=== PATIENT | female | born 1955 | race Caucasian/White ===

== ENCOUNTER 2020-07-08 13:37 | Outpatient (CLI) | payer BC, SELFPAY ==
--- NOTE | ~2020-07-08 | MM_ITS ---
EXAMINATION: MM scrn patience implant BI w indy HISTORY: Screening mammogram TECHNIQUE: Craniocaudal and mediolateral oblique 3-D tomosynthesis images with implant displacement a nd synthetic 2-D images were generated. Craniocaudal and mediolateral oblique views of the breasts wi thout implant displacement were obtained using full field digital mammography. CAD analysis was submi tted and interpreted. COMPARISON: Comparison to multiple prior studies sequentially, with oldest reviewed study dated 07/2011. BREAST PARENCHYMAL COMPOSITION: The breasts are heterogeneously dense, which may obscure small masses . FINDINGS: There is no evidence of suspicious mass, calcification, or architectural distortion to sugg est malignancy in either breast. There has been no suspicious interval change. IMPRESSION: 1. No mammographic evidence of malignancy. 2. Recommend routine screening mammography in one year. BI-RADS Category 1: Negative Reviewed, dictated and finalized at location A.
== END 2020-07-08 13:38 | disposition home or self-care (01) ==
LOC: ANHIMG 13:42
PROVIDERS: PCP Family Medicine; Visit Provider Obstetrics & Gynecology
DX: Z12.31 Encounter for screening mammogram for malignant neoplasm of breast (principal)
CPT/HCPCS: 77063; 77067

== ENCOUNTER 2022-07-14 16:07 | Outpatient (CLI) | payer MEDICARE, OTHER, SELFPAY ==
--- NOTE | ~2022-07-14 | MM_ITS ---
EXAMINATION: MM scrn patience implant BI w indy HISTORY: Screening mammogram TECHNIQUE: Craniocaudal and mediolateral oblique 3-D tomosynthesis images with implant displacement a nd synthetic 2-D images were generated. Craniocaudal and mediolateral oblique views of the breasts wi thout implant displacement were obtained using full field digital mammography. CAD analysis was submi tted and interpreted. COMPARISON: 07/08/2020, 03/02/2018, 07/23/2014, 07/14/2014 BREAST PARENCHYMAL COMPOSITION: The breasts are heterogeneously dense, which may obscure small masses . FINDINGS: There is no evidence of suspicious mass, calcification, or architectural distortion to sugg est malignancy in either breast. There has been no suspicious interval change. IMPRESSION: 1. No mammographic evidence of malignancy. 2. Recommend routine screening mammography in one year. BI-RADS Category 1: Negative Reviewed, dictated and finalized at location A.
== END 2022-07-14 16:08 | disposition home or self-care (01) ==
PROVIDERS: PCP Family Medicine; Visit Provider Obstetrics & Gynecology
DX: Z12.31 Encounter for screening mammogram for malignant neoplasm of breast (principal)
CPT/HCPCS: 77063; 77067

== ENCOUNTER 2023-02-14 11:40 | Outpatient (CLI) | payer MEDICARE, OTHER, SELFPAY ==
--- NOTE | ~2023-02-14 | MMUS_ITS ---
EXAMINATION: MM diag patience implant BI w indy, US breast BI complete HISTORY: Left breast lump TECHNIQUE: Bilateral full field and spot left displaced implant ML, MLO and CC 3-D tomosynthesis imag es were performed and synthetic 2-D images were generated. CAD analysis was submitted and interpreted . High resolution complete bilateral breast ultrasound examination including all quadrants and subare olar area of each breast was performed. COMPARISON: July 14, 2022, July 08, 2020 bilateral implant screening mammogram examinations BREAST PARENCHYMAL COMPOSITION: The breasts are extremely dense, which lowers the sensitivity of mamm ography. FINDINGS: MAMMOGRAPHIC FINDINGS: Status post bilateral augmentation mammoplasty. No suspicious mass or architectural distortion, malignant calcification, skin thickening or retractio n of either breast is detected. The extremely dense stroma may obscure masses; for this reason, bilateral complete breast ultrasound examination was performed. ULTRASOUND: There are multiple bilateral circumscribed oval sonolucent and hypoechoic lesions, without internal v ascularity or suspicious shadowing. The largest on the right is situated at 11:00 5 cm from the nippl e, simple cysts measuring 5 x 4 mm. The largest on the left is a cyst measuring approximately 2.7 x 5 mm, at 9:00 4 cm from the nipple. No suspicious mass or shadowing of either breast is detected. IMPRESSION: 1. Benign findings; no mammographic or sonographic evidence of malignancy 2. Routine annual mammographic screening is recommended, with ultrasound supplementation as clinicall y appropriate BI-RADS Category 2: Benign finding(s). Reviewed, dictated and finalized at location A. BREASTER IMPRESSION: 1. Benign findings; no mammographic or sonographic evidence of malignancy 2. Routine annual mammographic screening is recommended, with ultrasound supple mentation as clinically appropriate BI-RADS Category 2: Benign finding(s).
== END 2023-02-14 11:41 | disposition home or self-care (01) ==
PROVIDERS: PCP Family Medicine; Visit Provider Family Medicine
DX: N63.22 Unspecified lump in the left breast, upper inner quadrant (principal)
CPT/HCPCS: 76641; 77062; 77066; G0279

== ENCOUNTER 2024-07-24 09:53 | Outpatient (CLI) | payer MEDICARE, OTHER, SELFPAY ==
--- NOTE | ~2024-07-24 | MM_ITS ---
EXAMINATION: MM scrn patience implant BI w indy HISTORY: Screening mammogram TECHNIQUE: Craniocaudal and mediolateral oblique 3-D tomosynthesis images with implant displacement a nd synthetic 2-D images were generated. Craniocaudal and mediolateral oblique views of the breasts wi thout implant displacement were obtained using full field digital mammography. CAD analysis was submi tted and interpreted. COMPARISON: Comparison to multiple prior studies sequentially, with oldest reviewed study dated 09/2017. BREAST PARENCHYMAL COMPOSITION: Dense: The breasts are heterogeneously dense, which may obscure small masses FINDINGS: There is no evidence of suspicious mass, calcification, or architectural distortion to sugg est malignancy in either breast. There has been no suspicious interval change. IMPRESSION: 1. No mammographic evidence of malignancy. 2. Recommend routine screening mammography in one year. BI-RADS Category 1: Negative Reviewed, dictated and finalized at location A.
--- OUTSIDE RECORDS SUMMARY | 2024-07-24 10:58 | XMS_ITS | Clinical Summary ---
Author Organization [facility] Address [address] [place] [id number] Care Team Providers Care Stone Grader Name Role Phone Geraldo Petersen MD Primary Care Provider [phone] Social History Tobacco Use Types Packs/Day Years Used Date Smoking Tobacco: Never Assessed Comments Unknown Sex and Gender Information Value Date Recorded Sex Assigned at Not on file Legal Sex Female 7:42 PM CDT Gender Identity Not on file Sexual Orientation Not on file Plan of Treatment Health Maintenance Due Date Last Done Comments Colorectal Cancer Screening Colonoscopy (10 Years) 1957 Hepatitis C 1975 DTaP, Tdap and Td Vaccines ( 1 - Tdap) 1976 Mammogram Screening 1997 Pneumococcal Vaccine: 50+ Ye ars (1 of 1 - PCV) 2007 Zoster Vaccines (1 of 2) 2007 Dexa Scan (General) 2022 COVID-19 Vaccine (1 - 2023-2 5 season) 2023 RSV Immunization or 60+ Years (1 - 1-dose 75+ series) 2032 Meningococcal B Vaccine Aged Out No l onger eligible based on patient's age to complete this topic Meningococcal Vaccine Aged Out No gurdeep nikia eligible based on patient's age to complete this topic RSV Immunizations Under 20 Months Aged Out No longer eligible based on patient's age to complete this topic Care Teams Stone Grader Relationship Specialty Start Date End Date Geraldo Petersen MD [address] [place] [address] JACKSON [address] [place] [id number] PCP - General 07/12/14
--- OUTSIDE RECORDS SUMMARY | 2024-07-24 10:58 | XMS_ITS | Encounter Summary ---
Author Organization [facility] Address [address] [place] [address] Care Team Providers Care City Dispatch Supervisor Name Role Phone Unavailable Primary Care Provider Unavailabl e Encounter Details Date Type Department Care Team (Late st Contact Info) Description 09/07/2022 Lab Requisition [facility] - DermPath Lab [address] [place] [id number] Dav Witt MD [address] [place] [address] Social History Tobacco Use Types Packs/Day Years Used Date Smoking Tobacco: Never Assessed Comments Unknown Sex and Gender Information Value Date Recorded Sex Assigned at Not on file Legal Sex Female 4:46 PM CDT Gender Identity Not on file Sexual Orientation Not on file documented as of this encounter Plan of Treatment Not on file documented as of this encounter Procedures Procedure Name Priority Date/Time Associated Diagnosis Comments DERMATOPATHOLOGY Routine 09/07/2022 3:33 AM CDT documented in this encounter Results * DERMATOPATHOLOGY (09/07/2022 3:33 AM CDT) Case Report Dermatopathology Report Case: [id number] Authorizing Provider: Dav Witt MD Collected: 09/07/2022 03:33 AM Ordering Location: [facility] DermPath Lab Received: 09/07/2022 05:01 PM Pathologist: Osiris Everett MD Specimen: Skin, left lower eyelid 12:46 PM CDT DERMATOPATHOLOGY LABORATORY Final Diagnosis Specimen A. 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 The specimen consists of a shave biopsy measuring 1x2x1 mm. Jar 0. 3 12:46 PM [facility] DERMATOPATHOLOGY LABORATORY Microscopic Description Specimen A. SKIN, left lower eyelid: Within the dermis, there is a space lined by one to several layers of typical epithelial cells that resemble the lining of the normal sweat duct. Additional deeper sections were obtained and reviewed. 3 12:46 PM [facility] DERMATOPATHOLOGY LABORATORY Disclaimer An external and internal positive and negative controls are appropriate for the histochemical, immunohistochemical and immunofluorescence stain(s) in this case (if any), except where stated explicitly. The performance characteristics of the stain(s) cited in this report were developed and its performance characteristic determined by the Dermatopathology Laboratory at [facility], directed by Dr. Becky Gonzalez. These tests need not be, and therefore are not, approved by the [place] Food and Drug Administration. The tests are used for clinical purposes. Billing Codes Specimen Charges Stain Charges 92654 1 3 12:46 PM CDT DERMATOPATHOLOGY LABORATORY Embedded Images 3 12:46 PM T DERMATOPATHOLOGY LABORATORY Pathology/Cytolo gy TISSUE SPECIMEN FROM SKIN / Unknown 09/07/2022 3:33 AM CDT 09/07/2022 5:01 PM CDT us Dav Witt MD LAB - PATHOLOGY/CYTOLOGY ORDERAB LES Final Result DERMATOPATHOLOGY LABORATORY [facility] - Department of Dermatology [address] [place] [address], [facility] [phone] documented in this encounter Visit Diagnoses Not on filedocumented in this encounter
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
--- OUTSIDE RECORDS SUMMARY | 2024-07-24 10:58 | XMS_ITS | Clinical Summary ---
Author Organization [facility] Address [address] [place] [address] Care Team Providers Care Neurosurgical Physician Assistant Name Role Phone Unavailable Primary Care Provider Unavailabl e Source Comments [facility],non-owned Affiliates and Associated Physician Practices is amultiple site organization consisting of ambulatory clinics and hospital sitesin [place], [place], [place] and [place]. This disclosure is being madepursuant to the Care Everywhere program and may not contain all information available regarding this patient. Last updated 17.[facility] Social History Tobacco Use Types Packs/Day Years Used Date Smoking Tobacco: Never Assessed Comments Unknown Sex and Gender Information Value Date Recorded Sex Assigned at Not on file Legal Sex Female 4:46 PM CDT Gender Identity Not on file Sexual Orientation Not on file Plan of Treatment Health Maintenance Due Date Last Done Comments BONE DENSITY TESTING 1957 COLOGUARD (AGES 45-75) - COL ON CA SCREENING 1957 COLON MONITORING 1957 COLONOSCOPY - COLON CA SCREENING 1957 CT COLONOGRAPHY - COLON CA SCREENING 1957 Colorectal Cancer Screening 1957 FIT - COLON CA SCREENING 1957 FLEX SIG - COLON CA SCREENING 1957 LIPID TESTING 1957 MAMMOGRAM 1957 HEPATITIS C SCREENING 03/22/1975 DTAP/TDAP/TD VACCINES (1 - Tdap) 1976 PNEUMOCOCCAL VACCINE 50+ (1 of 1 - PCV) 2007 ZOSTER VACCINE (1 of 2) 2007 COVID-19 VACCINE (1 - 2023-2 5 season) 2023 DEPRESSION SCREENING 03/27/2024 INFLUENZA VACCINE (Season Ended) 2024 Respiratory Syncytial Virus (RSV) Vaccine Pt: or over 60 yrs (1 - 1-dose 75+ series) 2032 HEPATITIS B VACCINE Aged Out No longe r eligible based on patient's age to complete this topic HIB VACCINE Aged Out No longer eligi ble based on patient's age to complete this topic HPV VACCINE Aged Out No longer eligi ble based on patient's age to complete this topic MENINGOCOCCAL (Group B) VACC INE SHARED DECISION-MAKING Aged Out No longer eligibl e based on patient's age to complete this topic MENINGOCOCCAL GROUPS A/C/Y/W VACCINE Aged Out No longer eligible b ased on patient's age to complete this topic
--- OUTSIDE RECORDS SUMMARY | 2024-07-24 10:59 | XMS_ITS | Referral Summary ---
Author Organization [facility] Address [address] [place] [address] Care Team Providers Care Icu Staff Nurse Name Role Phone Geraldo Petersen MD Primary Care Provider [phone] Encounters Date Type Department Care Team Description 05/06/2024 Telephone [facility] Cardiology [address] [facility] [address] [place] [address] Tim Maradiaga MD 04/29/2024 Telephone [facility] Cardiac Rehab [address] [place] [address] Hugo Abernathy RN from Last 3 Months Allergies No known active allergies Medications ergocalciferol [...] 1 tablet (50 mcg total) by mouth 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 Active Active Problems Problem Noted Date Diagnosed Date Ventricular fibrillation 04/16/2024 ICD (implantable cardioverter-defibrillator) in place 04/16/2024 Sinus bradycardia 04/16/2024 CAD (coronary artery disease) 03/28/2024 COVID 2024 Prolonged Q-T interval on ECG 03/25/2024 Essential hypertension, benign 03/25/2024 Elevated troponin 03/25/2024 History of pneumonia 03/25/2024 Cardiac arrest 03/23/2024 Immunizations Immunization Administration Dates Next Due Influenza, Quadrivalent, Bridgett l Culture-based MDCK, Preservative Free, Antibiotic Free, Intramuscular 04/23/2019 Influenza, Trivalent, Preservative Free, Intramu scular 01/04/2017 Social History Tobacco Use Types Packs/Day Years Used Date Smoking Tobacco: Never Passive Smoke Exposure: Never Smokeless Tobacco: Never Tobacco Cessation:Counseling Given: Not Answered Alcohol Use Standard Drinks/Week Comments Yes 0 (1 standard drink = 0.6 oz pur e alcohol) [facility] addwish Answer Date Recorded In the past 12 months has [employer], oil, or water [employer] threatened to shut off services in your [...] 03/25/2024 How often do you attend chur or mormon services? Never 03/25/2024 Do you belong to any clubs o r organizations such as cheondoism groups, unions, fraternal or athletic groups, or [...] any time in the past 12 m [facility], were you homeless or living in a [place] health care facility (including now)? No 03/25/2024 Personal Safety Answer Date Recorded Have you ever been in or are you currently in a harmful physical or emotional relationship or is someone making you feel afraid or unsafe? Denies 04/02/2024 Comments No Sex and Gender Information Value Date Recorded Sex Assigned at Not on file Legal Sex Female 4:50 AM AUDITOR APPRAISER Gender Identity Not on file Sexual Orientation Not on file Occupation Industry Job Start Date Job End Date Retired [employer] Not on file Not on file Not on ira e Last Filed Vital Signs Vital Sign Reading Time Taken Comments Blood Pressure 118/74 04/17/2024 2:51 PM AUDITOR APPRAISER Pulse 77 04/17/2024 2:51 PM AUDITOR APPRAISER Temperature 36.3 C (97.3 F) 04/03/2024 7:46 AM AUDITOR APPRAISER Respiratory Rate 18 04/03/2024 7:46 AM AUDITOR APPRAISER Oxygen Saturation 99% 04/17/2024 2:51 PM AUDITOR APPRAISER Inhaled Oxygen Concentration - - Weight 60.8 kg (134 lb) 04/17/2024 2:51 PM AUDITOR APPRAISER Height 170.2 cm (5' 7.01 ) 03/23/2024 5:54 PM C Body Mass Index 20.98 03/23/2024 5:54 PM AUDITOR APPRAISER Plan of Treatment Not on file Medical Devices Implanted Type Area Senior Network Administrator Device Identifier Shelf Expiration Date Model / Serial / Lot [employer] Durata 6.8fr 58cm 1 Coil True Bipolar Active Fixation Extendable 7122q/58 - [id number] - [id number] Implanted:Qty: 1 on 04/02/2024 by Tim Maradiaga MD at [facility] Lead [employer] [id number] 12/24/2025 7122Q/58 / [id number] / [employer] Closure Repair Femoral Artery Suture Mediated Perclose Prostyle 23059-22 - [id number] Implanted:Qty: 1 on 2024 by Darci Downs MD at [facility] [employer] 12/24/2025 76842-58 / / [id number] [employer] Active Fixation Steroid Eluting Latex Free Sterile Right Atrium Ventricle Ultipace 52cm Fno3999/52 - [id number] - [id number] Implanted:Qty: 1 on 04/02/2024 by Tim Maradiaga MD at [facility] [employer] [id number] 01/24/2027 LPA12 / [id number] / [employer] Defib Cardiac [id number] [place] Implantable 2 Chamber Epytu259r - [id number] - [id number] Implanted:Qty: 1 on 04/02/2024 by Tim Maradiaga MD at [facility] [employer] [id number] 12/24/2024 CDDRA 500Q / [id number] / Insurance MEDICARE [facility] MEDICARE [facility] MEDICARE [employer] [facility] Advance Directives For more information, please contact: [phone] * Full Code (Latest Code Status on File) Date Activated Date Inactivated Comments 03/23/2024 6:18 PM 04/03/2024 4:21 PM Care Teams Icu Staff Nurse Relationship Specialty Start Date End Date Geraldo Petersen MD [address] [place] [address] DR JACKSON [address] [place] [address] PCP - General Family Medicine 02/20/21
== END 2024-07-24 09:54 | disposition home or self-care (01) ==
LOC: ANHIMG 09:56
PROVIDERS: PCP Family Medicine; Visit Provider Family Medicine
DX: Z12.31 Encounter for screening mammogram for malignant neoplasm of breast (principal)
CPT/HCPCS: 77063; 77067